=== PATIENT | female | born 1935 | race Caucasian/White ===

== ENCOUNTER 2023-10-17 16:22 | Inpatient (IN) | payer MEDICARE ==
[~2023-10-17] VITALS: Ht 165.1 cm; Wt 58.1 kg
[2023-10-17] MEDS ORDERED: ATOR10TA PO (16:27)
[2023-10-17] MEDS ORDERED: PARO12.520 PO (16:27)
[2023-10-17] MEDS ORDERED: TOPI100T38 PO (16:27)
[2023-10-17 19:01] LABS: BASOPHILS % (AUTO) 0.3 % (0.0-2.0); EOSINOPHILS # (AUTO) 0.1 K/uL (0.0-0.7); EOSINOPHILS % (AUTO) 1.5 % (0.0-7.0); HEMATOCRIT 38.3 % (31.2-41.9); HEMOGLOBIN 12.6 g/dL (10.9-14.3); LYMPHOCYTES # (AUTO) 1.3 K/uL (0.8-4.8); LYMPHOCYTES % (AUTO) 15.4 % (20.5-51.5); MEAN CORPUSCULAR HEMOGLOBIN 30.2 uug (24.7-32.8); MEAN CORPUSCULAR HGB CONC 33 g/dL (32.3-35.6); MEAN CORPUSCULAR VOLUME 91.4 fL (75.5-95.3); MONOCYTES # (AUTO) 0.6 K/uL (0.1-1.30); MONOCYTES % (AUTO) 7.4 % (0.0-11.0); NEUTROPHILS # (AUTO) 6.4 K/uL (1.8-8.9); NEUTROPHILS % (AUTO) 75.4 % (38.5-71.5); PLATELET COUNT (AUTO) 145 K/uL (179-408); RED BLOOD CELL COUNT(AUTO) 4.19 MIL/uL (3.63-4.92); RED CELL DISTRIBUTION WIDTH 14.7 % (12.3-17.7); WHITE BLOOD COUNT (AUTO) 8.5 K/uL (3.8-11.8)
[2023-10-17 19:13] LABS: DIFFERENTIAL COMMENT 1
[2023-10-17 19:32] LABS: ALBUMIN 3.4 g/dL (3.4-5.0); BILIRUBIN,DIRECT 0.2 mg/dL (0.0-0.2); BILIRUBIN,TOTAL 0.7 mg/dL (0.2-1.0); CALCIUM 9.9 mg/dL (8.5-10.1); CREATININE 0.9 mg/dL (0.6-1.3); TOTAL PROTEIN, SERUM 6.6 g/dL (6.4-8.2)
[2023-10-17] MEDS ORDERED: ONDANSETRON 4 MG/2 ML VIAL ONE (20:54)
[2023-10-17] MEDS ORDERED: HYDROCODONE/APAP 10-325 MG TABLET ONE (20:54)
[2023-10-17] MEDS: ONDANSETRON 4 MG/2 ML VIAL IV ONE (20:59)
[2023-10-17] MEDS: HYDROCODONE/APAP 10-325 MG TABLET PO ONE (20:59)
[2023-10-17] MEDS ORDERED: REMEDY ESSENTIAL ZINC PASTE 113 GM TP PRN (23:30)
[2023-10-17] MEDS ORDERED: HYDROMORPHONE 1 MG/1 ML DISP.SYRIN IV PRN (23:30)
[2023-10-17] MEDS ORDERED: ONDANSETRON 4 MG/2 ML VIAL IV PRN (23:30)
[2023-10-17] MEDS ORDERED: MAGNESIUM HYDROXIDE 30 ML LIQUID UDC PO PRN (23:30)
[2023-10-18] MEDS ORDERED: HYDROMORPHONE 1 MG/1 ML DISP.SYRIN ONE (00:44)
[2023-10-18] MEDS: HYDROMORPHONE 1 MG/1 ML DISP.SYRIN IV ONE ×2 (00:47→09:38)
[2023-10-18 02:19] VITALS: BP 92/57; TEMP 98.5; O2SAT 98
[2023-10-18] MEDS: IV NS 1000 ML 1,000 ML IV PRN (02:27)
[2023-10-18 05:20] VITALS: BP 107/65; TEMP 98.4; O2SAT 94
[2023-10-18 07:05] LABS: BASOPHILS % (AUTO) 0.4 % (0.0-2.0); EOSINOPHILS # (AUTO) 0.3 K/uL (0.0-0.7); EOSINOPHILS % (AUTO) 5.5 % (0.0-7.0); HEMATOCRIT 34.6 % (31.2-41.9); HEMOGLOBIN 11.5 g/dL (10.9-14.3); LYMPHOCYTES # (AUTO) 1.7 K/uL (0.8-4.8); LYMPHOCYTES % (AUTO) 26.7 % (20.5-51.5); MEAN CORPUSCULAR HEMOGLOBIN 30.3 uug (24.7-32.8); MEAN CORPUSCULAR HGB CONC 33 g/dL (32.3-35.6); MEAN CORPUSCULAR VOLUME 91.5 fL (75.5-95.3); MONOCYTES # (AUTO) 0.7 K/uL (0.1-1.30); MONOCYTES % (AUTO) 11.4 % (0.0-11.0); NEUTROPHILS # (AUTO) 3.5 K/uL (1.8-8.9); PLATELET COUNT (AUTO) 125 K/uL (179-408); RED BLOOD CELL COUNT(AUTO) 3.79 MIL/uL (3.63-4.92); RED CELL DISTRIBUTION WIDTH 14.6 % (12.3-17.7); WHITE BLOOD COUNT (AUTO) 6.2 K/uL (3.8-11.8)
[2023-10-18 07:15] LABS: DIFFERENTIAL COMMENT 1
[2023-10-18 07:22] LABS: CARBON DIOXIDE 30 mmol/L (21-32); CHLORIDE 110 mmol/L (98-107); CREATININE 0.9 mg/dL (0.6-1.3); GLUCOSE 103 mg/dL (74-106); MAGNESIUM 2.2 mg/dL (1.8-2.4); PHOSPHOROUS 3.6 mg/dL (2.5-4.9); POTASSIUM 4.4 mmol/L (3.5-5.1); SODIUM SERUM 144 mmol/L (136-145); UREA NITROGEN, BLOOD 23 mg/dL (7-18)
[2023-10-18] MEDS: PAROXETINE HCL 10 MG TABLET PO SCH (09:39)
[2023-10-18] MEDS: TOPIRAMATE 100 MG TABLET PO SCH (09:39)
[2023-10-18] MEDS ORDERED: ASPI81TA31 PO (09:46)
[2023-10-18 12:00] VITALS: BP 100/60; TEMP 98.5; O2SAT 96
[2023-10-18 16:00] VITALS: BP 102/52; TEMP 98.4; O2SAT 94
[2023-10-18 19:00] VITALS: BP 118/59; TEMP 99.9; O2SAT 96
[2023-10-18] MEDS: ACETAMINOPHEN 325 MG TABLET PO PRN (20:25)
[2023-10-18] MEDS: ATORVASTATIN 10 MG TABLET PO SCH (20:25)
[2023-10-18] MEDS ORDERED: ASPIRIN 81 MG TAB.CHEW PO SCH (21:00)
[2023-10-18] MEDS: HYDROMORPHONE 1 MG/1 ML DISP.SYRIN IV PRN (21:48)
[2023-10-19 06:30] VITALS: BP 106/53; TEMP 97.5; O2SAT 97
[2023-10-19 07:03] LABS: BASOPHILS % (AUTO) 0.3 % (0.0-2.0); EOSINOPHILS # (AUTO) 0.4 K/uL (0.0-0.7); EOSINOPHILS % (AUTO) 5.9 % (0.0-7.0); HEMATOCRIT 35.8 % (31.2-41.9); HEMOGLOBIN 11.9 g/dL (10.9-14.3); LYMPHOCYTES # (AUTO) 1.3 K/uL (0.8-4.8); LYMPHOCYTES % (AUTO) 19.2 % (20.5-51.5); MEAN CORPUSCULAR HEMOGLOBIN 30.5 uug (24.7-32.8); MEAN CORPUSCULAR HGB CONC 33 g/dL (32.3-35.6); MEAN CORPUSCULAR VOLUME 91.7 fL (75.5-95.3); MONOCYTES # (AUTO) 0.8 K/uL (0.1-1.30); MONOCYTES % (AUTO) 11.2 % (0.0-11.0); NEUTROPHILS # (AUTO) 4.3 K/uL (1.8-8.9); NEUTROPHILS % (AUTO) 63.4 % (38.5-71.5); PLATELET COUNT (AUTO) 116 K/uL (179-408); RED BLOOD CELL COUNT(AUTO) 3.91 MIL/uL (3.63-4.92); RED CELL DISTRIBUTION WIDTH 14.4 % (12.3-17.7); WHITE BLOOD COUNT (AUTO) 6.8 K/uL (3.8-11.8)
[2023-10-19 07:11] LABS: DIFFERENTIAL COMMENT 1
[2023-10-19 07:12] LABS: CREATININE 0.8 mg/dL (0.6-1.3); POTASSIUM 3.6 mmol/L (3.5-5.1)
[2023-10-19 11:03] VITALS: BP 109/60; TEMP 98.6; O2SAT 95
[2023-10-19] MEDS ORDERED: HYDROCODONE/APAP 10-325 MG TABLET PO PRN (11:15)
[2023-10-19] MEDS: MAGNESIUM HYDROXIDE 30 ML LIQUID UDC PO PRN (12:04)
[2023-10-19 15:01] VITALS: BP 101/48; TEMP 97.8; O2SAT 96
[2023-10-19 20:15] VITALS: BP 95/51; TEMP 98.9; O2SAT 95
[2023-10-19] MEDS: ASPIRIN 81 MG TAB.CHEW PO SCH (21:42)
[2023-10-20 05:30] VITALS: BP 113/59; TEMP 98; O2SAT 96
[2023-10-20 06:35] LABS: BASOPHILS % (AUTO) 0.3 % (0.0-2.0); EOSINOPHILS # (AUTO) 0.4 K/uL (0.0-0.7); EOSINOPHILS % (AUTO) 5.3 % (0.0-7.0); HEMATOCRIT 34.6 % (31.2-41.9); HEMOGLOBIN 11.4 g/dL (10.9-14.3); LYMPHOCYTES % (AUTO) 24.5 % (20.5-51.5); MEAN CORPUSCULAR HEMOGLOBIN 30.2 uug (24.7-32.8); MEAN CORPUSCULAR HGB CONC 33 g/dL (32.3-35.6); MEAN CORPUSCULAR VOLUME 91.5 fL (75.5-95.3); MONOCYTES # (AUTO) 0.9 K/uL (0.1-1.30); MONOCYTES % (AUTO) 11.5 % (0.0-11.0); NEUTROPHILS # (AUTO) 4.7 K/uL (1.8-8.9); NEUTROPHILS % (AUTO) 58.4 % (38.5-71.5); PLATELET COUNT (AUTO) 120 K/uL (179-408); RED BLOOD CELL COUNT(AUTO) 3.78 MIL/uL (3.63-4.92); RED CELL DISTRIBUTION WIDTH 14.2 % (12.3-17.7)
[2023-10-20 06:44] LABS: DIFFERENTIAL COMMENT 1
[2023-10-20 06:56] LABS: CALCIUM 8.9 mg/dL (8.5-10.1); CREATININE 0.8 mg/dL (0.6-1.3); POTASSIUM 3.7 mmol/L (3.5-5.1)
[2023-10-20] MEDS: MIRALAX 17 GM POWD.PACK PO SCH (08:44)
[2023-10-20] MEDS ORDERED: HYDR1DIS2 IV (11:51)
[2023-10-20] MEDS ORDERED: POLY17PO4 PO (11:51)
[2023-10-20] MEDS ORDERED: PARO10TA4 PO (11:51)
[2023-10-20] MEDS ORDERED: ACET325T53 PO (11:51)
[2023-10-20] MEDS ORDERED: HYDR-3972 PO (11:51)
[2023-10-20] MEDS ORDERED: ASPI81TA31 PO (11:51)
[2023-10-20] MEDS: BISACODYL 5 MG TABLET.DR PO ONE (13:19)
[2023-10-20] MEDS: HYDROCODONE/APAP 5-325MG TABLET PO PRN (13:20)
[2023-10-20] MEDS ORDERED: MAGN400O6 PO (15:11)
== END 2023-10-20 14:40 | DRG 536 ==
LOC: ER 16:23 → MEDSURG3 23:25
PROVIDERS: ADMIT Nurse Practitioner Acute Care; ATTEND Nurse Practitioner Acute Care
DX: S72.144A Nondisplaced intertrochanteric fracture of right femur, initial encounter for closed fracture (principal); M97.01XA Periprosthetic fracture around internal prosthetic right hip joint, initial encounter; S72.124A Nondisplaced fracture of lesser trochanter of right femur, initial encounter for closed fracture; V48.4XXA Person boarding or alighting a car injured in noncollision transport accident, initial encounter; Y92.481 Parking lot as the place of occurrence of the external cause; Z96.643 Presence of artificial hip joint, bilateral; E78.5 Hyperlipidemia, unspecified; Z79.899 Other long term (current) drug therapy; Z86.69 Personal history of other diseases of the nervous system and sense organs; R79.89 Other specified abnormal findings of blood chemistry; M15.9 Polyosteoarthritis, unspecified
CPT/HCPCS: 36415; 71045; 72170; 73551; 73700; 83735; 84100; 85025; 85730; 93005; G0378; J1170; J2405; J7040

== ENCOUNTER 2023-10-20 14:55 | Inpatient (IN) | payer MEDICARE ==
[~2023-10-20] VITALS: Ht 165.1 cm; Wt 58.1 kg
[~2023-10-20 14:55] MED LIST: ACET325T53 PO; ASPI81TA31 PO; ATOR10TA PO; HYDR-3972 PO; HYDR1DIS2 IV; PARO10TA4 PO; PARO12.520 PO; POLY17PO4 PO; TOPI100T38 PO
[2023-10-20] MEDS ORDERED: MAGN400O6 PO (15:11)
[2023-10-20 16:00] VITALS: BP 112/58; TEMP 97.6; O2SAT 98
[2023-10-20] MEDS ORDERED: BISACODYL 5 MG TABLET.DR PO PRN (16:15)
[2023-10-20] MEDS ORDERED: ACETAMINOPHEN 325 MG TABLET PO PRN (16:15)
[2023-10-20] MEDS ORDERED: HYDROMORPHONE 1 MG/1 ML DISP.SYRIN IV PRN (16:15)
[2023-10-20 19:46] VITALS: BP 98/50; TEMP 98.3; O2SAT 97
[2023-10-20] MEDS: SENNOSIDES 1 TABLET PO SCH (20:26)
[2023-10-20] MEDS: ASPIRIN 81 MG TAB.CHEW PO SCH (20:26)
[2023-10-21 06:00] VITALS: BP 111/57; TEMP 98.3; O2SAT 97
[2023-10-21 09:00] VITALS: BP 107/58; TEMP 98.3; O2SAT 97
[2023-10-21] MEDS: MIRALAX 17 GM POWD.PACK PO SCH (09:00)
[2023-10-21] MEDS: HYDROCODONE/APAP 5-325MG TABLET PO PRN (10:10)
[2023-10-21] MEDS: PAROXETINE HCL 10 MG TABLET PO SCH (10:12)
[2023-10-21] MEDS: ATORVASTATIN 10 MG TABLET PO SCH (10:12)
[2023-10-21] MEDS: TOPIRAMATE 100 MG TABLET PO SCH (10:12)
[2023-10-21] MEDS: ENOXAPARIN SODIUM 40 MG/0.4 ML DISP.SYRIN SQ SCH (10:19)
[2023-10-21 16:06] VITALS: BP 128/60; TEMP 98.6; O2SAT 99
[2023-10-21 20:00] VITALS: TEMP 98
[2023-10-22] VITALS: TEMP 98.2
[2023-10-22 04:00] VITALS: TEMP 98.6
[2023-10-22 06:00] VITALS: TEMP 98.5
[2023-10-22 07:18] LABS: BASOPHILS % (AUTO) 0.5 % (0.0-2.0); EOSINOPHILS # (AUTO) 0.4 K/uL (0.0-0.7); EOSINOPHILS % (AUTO) 5.7 % (0.0-7.0); HEMATOCRIT 36.2 % (31.2-41.9); HEMOGLOBIN 11.9 g/dL (10.9-14.3); LYMPHOCYTES # (AUTO) 1.5 K/uL (0.8-4.8); LYMPHOCYTES % (AUTO) 21.7 % (20.5-51.5); MEAN CORPUSCULAR HGB CONC 33 g/dL (32.3-35.6); MONOCYTES # (AUTO) 0.8 K/uL (0.1-1.30); MONOCYTES % (AUTO) 11.6 % (0.0-11.0); NEUTROPHILS # (AUTO) 4.2 K/uL (1.8-8.9); NEUTROPHILS % (AUTO) 60.5 % (38.5-71.5); PLATELET COUNT (AUTO) 157 K/uL (179-408); RED BLOOD CELL COUNT(AUTO) 3.98 MIL/uL (3.63-4.92); RED CELL DISTRIBUTION WIDTH 14.5 % (12.3-17.7)
[2023-10-22 07:21] LABS: DIFFERENTIAL COMMENT 1
[2023-10-22 07:26] LABS: CREATININE 0.8 mg/dL (0.6-1.3); POTASSIUM 3.5 mmol/L (3.5-5.1)
[2023-10-22 15:35] VITALS: BP 112/51; TEMP 98.3; O2SAT 97
[2023-10-22 20:17] VITALS: BP 113/61; TEMP 98.9; O2SAT 96
[2023-10-23 06:00] VITALS: BP 116/59; TEMP 98.3; O2SAT 96
[2023-10-23 10:21] VITALS: BP 114/64; TEMP 97.5; O2SAT 95
[2023-10-23 11:59] VITALS: BP 94/54; TEMP 98.5; O2SAT 95
[2023-10-23 16:00] VITALS: BP 126/63; TEMP 98.5; O2SAT 98
[2023-10-23] MEDS: MAGNESIUM HYDROXIDE 30 ML LIQUID UDC PO PRN (20:09)
[2023-10-23 22:18] VITALS: BP 109/53; TEMP 99; O2SAT 98
[2023-10-24 06:49] VITALS: BP 116/54; TEMP 98.1; O2SAT 97
[2023-10-24] MEDS: TOPIRAMATE 100 MG TABLET PO SCH (09:00)
[2023-10-24 15:02] VITALS: BP 100/55; TEMP 98.4; O2SAT 97
[2023-10-24 19:00] VITALS: BP 104/60; TEMP 97.4; O2SAT 99
[2023-10-25 06:19] VITALS: BP 105/54; TEMP 97.6; O2SAT 96
[2023-10-25 16:40] VITALS: BP 96/49; TEMP 97.7; O2SAT 98
[2023-10-25 19:00] VITALS: BP 109/50; TEMP 98.1; O2SAT 97
[2023-10-26 06:00] VITALS: BP 101/57; TEMP 98.5; O2SAT 98
[2023-10-26 15:45] VITALS: BP 112/65; TEMP 98.4; O2SAT 92
[2023-10-26 20:00] VITALS: BP 122/59; TEMP 98.4; O2SAT 96
[2023-10-27 06:00] VITALS: BP 108/57; TEMP 98.5; O2SAT 96
[2023-10-27 06:40] LABS: BASOPHILS % (AUTO) 0.5 % (0.0-2.0); EOSINOPHILS # (AUTO) 0.4 K/uL (0.0-0.7); EOSINOPHILS % (AUTO) 6.4 % (0.0-7.0); HEMATOCRIT 33.6 % (31.2-41.9); LYMPHOCYTES # (AUTO) 1.6 K/uL (0.8-4.8); LYMPHOCYTES % (AUTO) 25.1 % (20.5-51.5); MEAN CORPUSCULAR HEMOGLOBIN 29.9 uug (24.7-32.8); MEAN CORPUSCULAR HGB CONC 33 g/dL (32.3-35.6); MEAN CORPUSCULAR VOLUME 91.3 fL (75.5-95.3); MONOCYTES # (AUTO) 0.7 K/uL (0.1-1.30); MONOCYTES % (AUTO) 11.4 % (0.0-11.0); NEUTROPHILS # (AUTO) 3.6 K/uL (1.8-8.9); NEUTROPHILS % (AUTO) 56.6 % (38.5-71.5); PLATELET COUNT (AUTO) 238 K/uL (179-408); RED BLOOD CELL COUNT(AUTO) 3.68 MIL/uL (3.63-4.92); RED CELL DISTRIBUTION WIDTH 14.2 % (12.3-17.7); WHITE BLOOD COUNT (AUTO) 6.4 K/uL (3.8-11.8)
[2023-10-27 06:54] LABS: DIFFERENTIAL COMMENT 1
[2023-10-27 07:08] LABS: THYROID STIMULATING HORMONE 0.047 mIU/mL (0.358-3.740)
[2023-10-27 07:19] LABS: ALBUMIN 2.4 g/dL (3.4-5.0); BILIRUBIN,TOTAL 0.6 mg/dL (0.2-1.0); CALCIUM 9.3 mg/dL (8.5-10.1); CREATININE 0.8 mg/dL (0.6-1.3); MAGNESIUM 2.3 mg/dL (1.8-2.4); POTASSIUM 3.7 mmol/L (3.5-5.1); TOTAL PROTEIN, SERUM 6.1 g/dL (6.4-8.2)
[2023-10-27 08:05] LABS: PHOSPHOROUS 4.2 mg/dL (2.5-4.9)
[2023-10-27 16:00] VITALS: BP 146/78; TEMP 98.2; O2SAT 98
[2023-10-27 20:00] VITALS: TEMP 97.8
[2023-10-28] VITALS: BP 109/58; TEMP 98.8; O2SAT 95
[2023-10-28 04:00] VITALS: TEMP 98.1
[2023-10-28 06:00] VITALS: TEMP 98
[2023-10-28 15:03] VITALS: BP 105/45; TEMP 98.6; O2SAT 94
[2023-10-28 20:54] VITALS: BP 105/46; TEMP 98.5; O2SAT 98
[2023-10-29 06:44] VITALS: BP 112/47; TEMP 97.6; O2SAT 94
[2023-10-29 11:40] VITALS: TEMP 97.9
[2023-10-29 12:00] VITALS: BP 106/47; TEMP 97.9; O2SAT 98
[2023-10-29 20:00] VITALS: TEMP 98
[2023-10-30 04:00] VITALS: TEMP 98.2
[2023-10-30 11:00] VITALS: BP 94/47; TEMP 98.4; O2SAT 87
[2023-10-30] MEDS: ENSURE WITH FIBER 237 ML LIQUID (CHOCOLATE) PO SCH (14:54)
== END 2023-10-30 15:30 | DRG 560 ==
PROVIDERS: ADMIT Physical Medicine & Rehabilitation; ATTEND Physical Medicine & Rehabilitation Pain Medicine
DX: S72.001D Fracture of unspecified part of neck of right femur, subsequent encounter for closed fracture with routine healing (principal); D68.59 Other primary thrombophilia; E44.0 Moderate protein-calorie malnutrition; W01.0XXD Fall on same level from slipping, tripping and stumbling without subsequent striking against object, subsequent encounter; M97.01XD Periprosthetic fracture around internal prosthetic right hip joint, subsequent encounter; Z96.643 Presence of artificial hip joint, bilateral; E78.5 Hyperlipidemia, unspecified; K59.09 Other constipation; V48.4XXD Person boarding or alighting a car injured in noncollision transport accident, subsequent encounter; D69.6 Thrombocytopenia, unspecified; E05.90 Thyrotoxicosis, unspecified without thyrotoxic crisis or storm; R53.1 Weakness
CPT/HCPCS: 36415; 83735; 84100; 84443; 85025; 97535-GO-CO; J1650